=== PATIENT | male | born 1960 | race Asian ===

== ENCOUNTER 2017-01-13 22:55 | Emergency (ER) | payer BC, OTHER ==
[~2017-01-13] VITALS: Wt 75.0 kg
[2017-01-14] MEDS ORDERED: IBUP-1542 PO (01:13)
--- NOTE | 2017-01-14 01:29 | ERD ---
ER Documentation Chief Complaint Date/Time DATE: 01/14/17 TIME: 01:23 Chief Complaint Left heel pain x1 wk HPI 56-year-old male complaining of right heel pain on and off 1 month. Pain is worse since yesterday. Patient stated that the pain is usually worse when he first stands up after prolonged periods sitting or lying. He took naproxen but it did not help the pain. He wants to get a steroid injection. Patient stated that he is seeing a chiller tender, and was provided with custom orthotics. But he is not currently using the orthotics. Patient has history of hypertension, but denies any other histories. Denies trauma. Denies fever or chills. ROS All systems reviewed and are negative except as per history of present illness. Medications Home Meds Active Scripts Ibuprofen* (Motrin*) 600 Mg Tab, 600 MG PO Q6H Y for PAIN AND OR ELEVATED TEMP, #30 TAB Prov:CLARENCE PEREZ. WEATHERSEAL TECHNICIAN 01/14/17 Allergies Allergies: Coded Allergies: No Known Allergy (Unverified , 01/13/17) PMhx/Soc Hx Cardiac Disorders: Yes (HTN) Hx Miscellaneous Medical Probl: Yes (R achilles tendonitis ) Hx Alcohol Use: No Hx Substance Use: No Hx Tobacco Use: No Smoking Status: Never smoker Physical Exam Vitals Vital Signs Date Time Temp Pulse Resp B/P Pulse Ox O2 Delivery O2 Flow Rate FiO2 01/13/17 23:03 98.6 84 20 133/86 96 Physical Exam General: Well-developed, well-nourished, conscious and coherent, in no distress Skin: Warm and dry without rash, good texture and turgor Head: Normocephalic without evidence of trauma Eyes: Sclera and conjunctivae normal; pupils equal, round, and reactive to light; extraocular movements are intact Chest: Normal AP diameter. Good expansion without retractions. Nontender. Lungs are clear to auscultate bilaterally with good tidal volume Heart: Regular rate and rhythm. No murmur, rub, or gallops heard Extremities: Right foot normal to inspection, no erythema or swelling. Tenderness over the posterior right heel, no Achilles tendon tenderness. Full range of motion. Good strength bilaterally. No clubbing, cyanosis, or edema. Peripheral pulses are intact. Sensation intact Neuro: Alert and oriented 4, GCS 15. Cranial nerves grossly intact. Motor and sensory exams nonfocal. Moves all extremities. Speech clear. Gait normal Procedures/MDM Well-appearing 56-year-old male present ED was on and off right heel pain 1 month. Patient symptoms and exam findings are consistent with plantar fasciitis. I doubt fractures, dislocation, sprain, Achilles tendon rupture, gout, or septic arthritis. Patient requests steroid injections. Advised patient that we do not do that here. Since he has already seen a chiller tender, he may obtain the injection from his chiller tender. Patient appears well, stable for discharge and outpatient management. Medical decision making shared with patient and family. Education provided to patient and family all methods to relieve pain, and exercises to prevent further recurrence. Patient and family expressed understanding of the plan. Medications on discharge: Ibuprofen. Follow-up: Primary care provider in 2-3 days or return to ED if worse. Disclaimer: Inadvertent spelling and grammatical errors are likely due to EHR/ dictation software use and do not reflect on the overall quality of patient care. Also, please note that the electronic time recorded on this note does not necessarily reflect the actual time of the patient encounter. Departure Diagnosis: Primary Impression: Plantar fasciitis of right foot Condition: Good Patient Instructions: Treating Plantar Fasciitis Referrals: [facility] YOU HAVE RECEIVED A MEDICAL SCREENING EXAM AND THE RESULTS INDICATE THAT YOU DO NOT HAVE A CONDITION THAT REQUIRES URGENT TREATMENT IN THE EMERGENCY DEPARTMENT. FURTHER EVALUATION AND TREATMENT OF YOUR CONDITION CAN WAIT UNTIL YOU ARE SEEN IN YOUR DOCTORS OFFICE WITHIN THE NEXT 1-2 DAYS. IT IS YOUR RESPONSIBILITY TO MAKE AN APPOINTMENT FOR FOLOW-UP CARE. IF YOU HAVE A PRIMARY DOCTOR --you should call your primary doctor and schedule an appointment IF YOU DO NOT HAVE A PRIMARY DOCTOR YOU CAN CALL OUR PHYSICIAN REFERRAL HOTLINE AT IF YOU CAN NOT AFFORD TO SEE A PHYSICIAN YOU CAN CHOSE FROM THE FOLLOWING [facility] [address] [facility] [address] [facility] [facility] [address] [facility] [address] [facility] [address] [facility]. [facility]. [address] Additional Instructions: Call your primary care doctor TOMORROW for an appointment during the next 2-3 days.See the doctor sooner or return here if your condition worsens before your appointment time. CLARENCE PEREZ NP Jan 14, 2017 01:29
[2017-01-14 01:33] VITALS: BP 136/82; PULSE 75; RESP 20; TEMP 98.1
== END 2017-01-14 01:34 | disposition home or self-care (01) ==
LOC: FTE 22:55
DX: M72.2 Plantar fascial fibromatosis (principal); I10 Essential (primary) hypertension
CPT/HCPCS: 99283